=== PATIENT | male | born 1990 | race Caucasian/White ===

== ENCOUNTER 2025-01-05 14:21 | Emergency (ER) | payer MEDICAID ==
[~2025-01-05] VITALS: Ht 180.3 cm; Wt 86.9 kg
[2025-01-05 14:28] VITALS: TEMP 98
[2025-01-05] MEDS: LIDOcaine 1% 30ml preserv. free vial IJ ONE (16:01)
[2025-01-05] MEDS ORDERED: CLIN-97 PO (16:09)
[2025-01-05] MEDS ORDERED: IBUP-862 PO (16:09)
[2025-01-05 16:54] VITALS: BP 139/85; PULSE 80; RESP 16; O2SAT 99
== END 2025-01-05 16:55 | disposition home or self-care (01) ==
LOC: ER 14:22
DX: L03.211 Cellulitis of face (principal); L03.012 Cellulitis of left finger; Z79.1 Long term (current) use of non-steroidal anti-inflammatories (NSAID)
CPT/HCPCS: 26010; 99283; A6407

== ENCOUNTER 2025-01-07 08:18 | Emergency (ER) | payer MEDICAID ==
[~2025-01-07] VITALS: Ht 180.3 cm; Wt 86.9 kg
[~2025-01-07 08:18] MED LIST: CLIN-97 PO; IBUP-862 PO
[2025-01-07 08:26] VITALS: BP 126/89; PULSE 82; TEMP 97.8; O2SAT 100
[2025-01-07] MEDS: LIDOcaine 1% 30ml preserv. free vial IJ ONE (09:20)
[2025-01-07] MEDS: TETanus/Pertussis (Acell)/Diphther VAC/PF (Tdap-Adult) 0.5ml syringe IMVAC ONE (10:31)
[2025-01-07 10:49] VITALS: RESP 16
[2025-01-07] MEDS: HYDROcodone/acetaminophen 10/325mg tab PO ONE (10:49)
== END 2025-01-07 11:21 | disposition home or self-care (01) ==
LOC: ER 08:19
DX: L02.512 Cutaneous abscess of left hand (principal); F17.200 Nicotine dependence, unspecified, uncomplicated; Z79.1 Long term (current) use of non-steroidal anti-inflammatories (NSAID); Z79.899 Other long term (current) drug therapy; Z59.00 Homelessness unspecified
CPT/HCPCS: 10160; 87070; 87077; 87186; 90471; 90715; 99284; A6407; A6258

== ENCOUNTER 2025-03-01 16:52 | Emergency (ER) | payer MEDICAID | END 2025-03-01 17:35 | disposition left against medical advice (07) | LOC: ER 16:53 | DX: Z00.8 Encounter for other general examination (principal); Z53.21 Procedure and treatment not carried out due to patient leaving prior to being seen by health care provider ==

== ENCOUNTER 2025-03-20 15:48 | Emergency (ER) | payer MEDICAID ==
[~2025-03-20] VITALS: Ht 180.3 cm; Wt 84.1 kg
[2025-03-20 15:55] VITALS: BP 139/73; PULSE 100; RESP 16; O2SAT 98
[2025-03-20] MEDS: LIDOcaine 1% 30ml preserv. free vial SQ STA (16:52)
[2025-03-20 17:21] LABS: BASOPHILS # (AUTO) 0.1 X10'3 (0-0.2); BASOPHILS % (AUTO) 0.6 % (0-1); EOSINOPHILS # (AUTO) 0.3 X10'3 (0-0.9); EOSINOPHILS % (AUTO) 2.8 % (0-6); HEMATOCRIT 37.1 % (42.0-52.0); HEMOGLOBIN 12.7 g/dl (14.0-17.9); LYMPHOCYTES # (AUTO) 1.3 X10'3 (1.1-4.8); LYMPHOCYTES % (AUTO) 12.5 % (21-51); MEAN CORPUSCULAR HEMOGLOBIN 31.7 PG (27.0-31.0); MEAN CORPUSCULAR HGB CONC 34.3 g/dL (33.0-36.5); MEAN CORPUSCULAR VOLUME 92.4 FL (78-98); MEAN PLATELET VOLUME 6.4 FL (7.4-10.4); MONOCYTES # (AUTO) 0.6 X10'3 (0-0.9); NEUTROPHILS # (AUTO) 8.3 X10'3 (1.8-7.7); NEUTROPHILS % (AUTO) 78.1 % (42-75); PLATELET COUNT 237 X10'3 (140-440); RED BLOOD COUNT 4.02 X10'6 (4.70-6.10); WHITE BLOOD COUNT 10.7 X10'3 (4.5-11.0)
--- NOTE | 2025-03-20 17:34 | RADIOLOGY REPORT ---
CLINICAL INDICATION: infection, r/o FOB in AC LEFT TECHNIQUE: 2 radiographic views of the left elbow were obtained. Comparison: None FINDINGS/IMPRESSION: There is no evidence of acute fracture or dislocation. The visualized joint space is well maintained. The alignment is anatomical. There is no radiopaque foreign body.
[2025-03-20 17:38] LABS: ALANINE AMINOTRANSFERASE 21 U/L (12-78); ALBUMIN 2.9 G/DL (3.4-5.0); ALBUMIN/GLOBULIN RATIO 0.9 (1.1-1.5); ALKALINE PHOSPHATASE 118 IU/L (46-116); ANION GAP 10 (8-16); ASPARTATE AMINO TRANSFERASE 27 U/L (10-37); BILIRUBIN,TOTAL 0.4 MG/DL (0.1-1.0); BLOOD UREA NITROGEN 7 MG/DL (7-18); BUN/CREATININE RATIO 11.3 (10.0-20.0); CALCIUM 8.1 MG/DL (8.5-10.1); CHLORIDE 103 MMOL/L (99-107); CREATININE 0.62 MG/DL (0.60-1.10); GLUCOSE 117 MG/DL (70-104); POTASSIUM 3.6 MMOL/L (3.5-5.1); SODIUM 141 MMOL/L (135-145); TOTAL CARBON DIOXIDE 28.3 MMOL/L (24-32); TOTAL PROTEIN 6.3 G/DL (6.4-8.2); eCRCL 182 ML/MIN; eGFR > 90 ML/MIN
[2025-03-20] MEDS: VANCOMYCIN 1.75GM/WATER FOR INJ (PEG) 350 ML IVPB IV ONE (17:41)
[2025-03-20] MEDS ORDERED: IBUP-1984 PO (18:29)
[2025-03-20] MEDS ORDERED: DOXY100C43 PO (18:29)
--- NOTE | 2025-03-20 18:34 | Physician Documentation ---
History of Present Illness General Chief Complaint: Abscess Stated Complaint: ABCESS ARM PAIN Time Seen by MD: 16:30 History of Present Illness Initial Comments 34-year-old male presents to emergency department for evaluation and management of the left forearm abscess with cellulitis. Reports recently do some IV methamphetamine the left antecubital fossa 45 days ago. He was going to obvious fluctuance with purulent discharge surrounding erythema and swelling. He does have reduced range of motion of the left upper extremity, pulses present radially, grossly neurologically intact radial median ulnar. Medication Reconciliation Allergies: Coded Allergies: No Known Allergies (Unverified , 01/05/25) Scheduled Clindamycin HCL* (Clindamycin HCL*), 1 CAP PO Q6H Doxycycline Monohydrate (Doxycycline Monohydrate), 100 MG PO BID Ibuprofen (Ibu), 1 TAB PO Q6H Ibuprofen* (Motrin*), 800 MG PO Q8H Past Medical History Past Medical History: No Pertinent History Past Surgical History: noncontributory Alcohol Use: Heavy Lives In: Homeless Review of Systems All Other Systems at this time: Reviewed and Negative Constitutional: Denies: fever, chills Musc: Reports: joint pain, joint swelling Integumentary Abscess Psychiatric blunted affect Physical Exam Physical Exam Vital Signs: RN Vital Signs have been reviewed: Yes, Temperature: 98.6, Source: Oral, Heart Rate: 100, Respiratory Rate: 16, BP: 139/73, Pulse Oximetry: 98, Weight: 84.100 Oxygen Flow Rate: 0 General Appearance: alert, WD/WN, moderate distress Head: normal inspection Face: normal inspection Pupils/EOM/Fundus: PERRLA Respiratory: no respiratory distress Chest: no accessory muscle use Cardiovascular: regular rate, rhythm Neurologic: oriented x4 Motor / Sensory: no motor deficit, no sensory deficit, other (Swelling with erythema am fluctuant 2 x 4 abscess left antecubital fossa. Excellent radial, ulnar and median nerve, he as you did not excellent cap refill) Psychiatric: other (Once it affect) Skin: erythema, other (Abscess left antecubital fossa) Lymphatic: No: axilla node tender (L) Procedures I & D Procedure : Anesthesia: Lidocaine Volume Anesthetic (mls): 1 Blade Size: 11 Prep/Supplies: betadine prep Incision: pus drained, blood drained Tolerated Procedure Well?: yes, no complications Procedure Note Patient given verbal consent for incision and drainage the left antecubital fossa abscess. I anesthetized with 1 cc of 1% lidocaine. After achieving adequate anesthesia the abscess was incised with a 11. Blade. Copious amounts of purulent discharge and serous sanguinous fluid expressed. The wound was then packed with a 6 in of half-inch gauze. 4x4 still gauze dressing applied. Progress Results/Orders Results/Orders Orders - PARKER FERRARO PAC Vancomycin/H2o 1.75g/350ml Pb (Vancomyci (03/20/25 17:10) Elbow,Limited (Ap/Lat) (03/20/25 17:12) Completed Orders - PARKER FERRARO PAC Lidocaine 1% 30ml Vial (Xylocaine 1% Via (03/20/25 16:52) Cbc/Diff (03/20/25 16:52) CMP (03/20/25 16:52) LA (03/20/25 16:52) Elbow,Limited (Ap/Lat) (03/20/25 17:12) Medications Received in ER Medications (Trade) Dose Ordered Sig/Marquise Route PRN Reason Start Time Stop Time Status Last Admin Dose Admin Vancomycin HCl 350 ml @ 117 mls/hr ONCE ONCE IV 03/20/25 17:10 03/20/25 20:09 03/20/25 17:41 117 MLS/HR Vital Signs 03/20/25 15:55 Temp 98.6 Pulse 100 Resp 16 B/P (MAP) 139/73 Pulse Ox 98 O2 Flow Rate 0 Laboratory Tests Test 03/20/25 17:03 White Blood Count 10.7 Red Blood Count 4.02 L Hemoglobin 12.7 L Hematocrit 37.1 L Mean Corpuscular Volume 92.4 Mean Corpuscular Hemoglobin 31.7 H Mean Corpuscular Hemoglobin Concent 34.3 Red Cell Distribution Width 13.0 Platelet Count 237 Mean Platelet Volume 6.4 L Neutrophils (%) (Auto) 78.1 H Lymphocytes (%) (Auto) 12.5 L Monocytes (%) (Auto) 6.0 Eosinophils (%) (Auto) 2.8 Basophils (%) (Auto) 0.6 Neutrophils # (Auto) 8.3 H Lymphocytes # (Auto) 1.3 Monocytes # (Auto) 0.6 Eosinophils # (Auto) 0.3 Basophils # (Auto) 0.1 CBC Comment Sodium Level 141 Potassium Level 3.6 Chloride Level 103 Carbon Dioxide Level 28.3 Anion Gap 10 Blood Urea Nitrogen 7 Creatinine 0.62 Estimated GFR/1.73 m2 > 90 BUN/Creatinine Ratio 11.3 Glucose Level 117 H Lactic Acid Level 1.9 Calcium Level 8.1 L Total Bilirubin 0.4 Aspartate Amino Transf (AST/SGOT) 27 Alanine Aminotransferase (ALT/SGPT) 21 Alkaline Phosphatase 118 H Total Protein 6.3 L Albumin 2.9 L Globulin 3.4 Albumin/Globulin Ratio 0.9 L Chemistry Comments Medical Decision Making Differential Diagnosis Bonilla is a 34-year-old male he used IV methamphetamine in the left antecubital fossa and subsequently developed with the abscess with cellulitis that has been present for 4-5 days. Reports that he has scheduled admin to rehab tomorrow. In the emergency department tonight he received IV vancomycin along with a incision and drainage procedure. He was reluctant in fact adamant not to stay in the hospital for further antibiotic intravenous administration yet wishes to begin outpatient. Patient will be discharged in the emergency department after laboratory review an x-ray of you. Patient be placed on doxycycline for 10 days with strict instructions to return to the emergency department the next 24-48 hours. He understands the risks, alternatives and benefits of hospital admission versus outpatient follow up. Patient's safely discharged from the emergency department. Without concerns of compartment syndrome post incision and drainage evaluation shows excellent cap refill grossly neurologically intact radial median ulnar nerve. Departure Disposition: 01 HOME / SELF CARE / HOMELESS Impression: Primary Impression: Abscess of antecubital fossa Condition: Improved Discharge Instructions: Abscess, Care After, Incision and Drainage, Cellulitis, Adult, [id number] Additional Instructions: Today in the emergency department you had incision and drainage of your left arm abscess. He received IV antibiotics and laboratory evaluation. You have elected not to stay in the hospital for further antibiotic administration you have wished to trial outpatient oral antibiotics with close follow up. Please return to the emergency department in next 24-48 hours for reassessment. Return sooner if worse. Thank you for visiting [facility]. Referrals: NO PRIMARY CARE PROVIDER (PCP) Prescriptions Ibuprofen* (Motrin*) 400 Mg Tablet 800 MG PO Q8H for 10 Days, #30 TAB Prov: PARKER FERRARO PAC 03/20/25 Doxycycline Monohydrate (Doxycycline Monohydrate) 100 Mg Capsule 100 MG PO BID, #20 CAP may sub doxycycline hyclate or azithromycin z-pack as prescribed Prov: PARKER FERRARO PAC 03/20/25 Education Educated: Patient Educated regarding: diagnosis, treatment, prognosis Signature Scribe Signature: . Attestation: . PARKER FERRARO PAC March 20, 2025 18:34
[2025-03-20 19:33] VITALS: TEMP 98.6
[2025-03-20] MEDS ORDERED: VANCOMYCIN 1,500MG inj. 1,500 MG in normal saline 500ml IV soln 300 ML IV SCH (20:00)
== END 2025-03-20 19:35 | disposition home or self-care (01) ==
LOC: ER 15:49
DX: L02.414 Cutaneous abscess of left upper limb (principal); F10.10 Alcohol abuse, uncomplicated; Z59.00 Homelessness unspecified; Y90.9 Presence of alcohol in blood, level not specified
CPT/HCPCS: 10060; 36415; 73070; 80053; 83605; 85025; 96365; 96366; 99284; A6266; J3372; A6449

== ENCOUNTER 2025-03-25 14:01 | Emergency (ER) | payer MEDICAID ==
[~2025-03-25] VITALS: Ht 167.6 cm; Wt 81.5 kg
[~2025-03-25 14:01] MED LIST changes: +DOXY100C43 PO; +IBUP-1984 PO
[2025-03-25] MEDS ORDERED: SULF1TAB49 PO (15:25)
--- NOTE | 2025-03-25 15:25 | Physician Documentation ---
History of Present Illness ~ Chief Complaint: Wound Re-Check Stated Complaint: ARM INFECTION Time Seen by MD: 14:07 OK to notify your PCP?: Yes Primary Medical Doctor: No PMD Source: patient Mode of Arrival: POV Exam Limitations: no limitations HPI 34-year-old male with chief complaint abscess at his left antecubital fossa that was treated here with I and D March 19. Patient states that he picked up the do xycycline but then lost the prescription almost immediately and thus he never took any of the antibiotic. States the pain seems to have improved significantly he is able to move his elbow and arm normally. Denies any pain in his axilla, fever, chills, nausea, chest pain or shortness of breath. Tetanus within 5 years?: Yes (Dec 2024) Medication Reconciliation Allergies: Coded Allergies: No Known Allergies (Unverified , 01/05/25) Scheduled Clindamycin HCL* (Clindamycin HCL*), 1 CAP PO Q6H Doxycycline Monohydrate (Doxycycline Monohydrate), 100 MG PO BID Ibuprofen (Ibu), 1 TAB PO Q6H Ibuprofen* (Motrin*), 800 MG PO Q8H Sulfamethoxazole/Trimethoprim (Bactrim Ds Tablet), 1 TAB PO Q12H Past Medical History Past Medical History: No Pertinent History Past Surgical History: noncontributory Alcohol Use: Heavy Lives In: Homeless Review of Systems All Other Systems at this time: Reviewed and Negative Physical Exam Vital Signs: Temperature: 98.0, Source: Oral, Heart Rate: 88, Respiratory Rate: 16, BP: 132/75, Pulse Oximetry: 100, Weight: 81.500 Oxygen Flow Rate: 0 Physical Exam General Appearance: Alert, WD/WN. NAD. HEENT: NCAT, PERRL, EOMI. Neck: Supple, trachea midline. Cardiovascular: RRR. No m/r/g. Lungs: CTAB. Breathing unlabored Extremities: Normal inspection. No edema. Skin: LEFT UE-erythematous area left antecubital fossa measuring approximately 3 cm in diameter in the center the area of erythema there is an open area of skin where there is some purulent drainage, no proximal erythematous streak up the ar m, active range motion at elbow joint is full. No axillary lymphadenopathy. Neurological: Alert and oriented x4, normal gait. Psychiatric: Affect congruent with mood. Progress Results/Orders Results/Orders Vital Signs 03/25/25 03/25/25 14:02 15:33 Temp 98.0 98.0 Pulse 88 70 Resp 16 16 B/P (MAP) 132/75 126/80 Pulse Ox 100 99 O2 Flow Rate 0 Medical Decision Making Differential Dx:Considerations: Include: Abscess, Cellulitis, Dressing change, Healing wound, Other Departure Time of Disposition: 18:45 Disposition: 01 HOME / SELF CARE / HOMELESS Impression: Primary Impression: Abscess of antecubital fossa Additional Instructions: appears to be improved from when you where here previously per the chart notes, but has not resolved, likely because you never got the antibiotics or your got them and lost them. I sent new rx to the pharmacy. Referrals: NO PRIMARY CARE PROVIDER (PCP) Prescriptions Sulfamethoxazole/Trimethoprim (Bactrim Ds Tablet) 800 Mg-160 Mg Tablet 1 TAB PO Q12H for 10 Days, #20 TAB Prov: OSBALDO PONCE 03/25/25 Education Educated: Patient Educated regarding: diagnosis, treatment, need for follow up Signature Scribe Signature: X Attestation: OSBALDO GALVAN March 25, 2025 15:25
[2025-03-25 15:33] VITALS: BP 126/80; PULSE 70; RESP 16; TEMP 98; O2SAT 99
== END 2025-03-25 15:28 | disposition home or self-care (01) ==
LOC: ER 14:01
DX: L02.414 Cutaneous abscess of left upper limb (principal); F10.90 Alcohol use, unspecified, uncomplicated; Z79.899 Other long term (current) drug therapy; Z59.00 Homelessness unspecified; Y90.9 Presence of alcohol in blood, level not specified
CPT/HCPCS: 99283

== ENCOUNTER 2025-03-30 11:44 | Emergency (ER) | payer MEDICAID ==
[~2025-03-30] VITALS: Ht 180.3 cm; Wt 84.1 kg
[~2025-03-30 11:44] MED LIST changes: +SULF1TAB49 PO
[2025-03-30 12:02] VITALS: BP 149/93; PULSE 78; RESP 18; TEMP 97.9; O2SAT 98
--- NOTE | 2025-03-30 13:19 | Physician Documentation ---
History of Present Illness ~ Chief Complaint: Testicular Pain Stated Complaint: MULTIPLE MED COMPLAINTS Time Seen by MD: 12:13 Primary Medical Doctor: No PMD HPI 34 year old male reports several months of bilateral testicular pain and swelling. Denies dysuria, discharge, unprotected sex, fevers, N/V/D. Medication Reconciliation Allergies: Coded Allergies: No Known Allergies (Unverified , 01/05/25) Scheduled Clindamycin HCL* (Clindamycin HCL*), 1 CAP PO Q6H Doxycycline Monohydrate (Doxycycline Monohydrate), 100 MG PO BID Ibuprofen (Ibu), 1 TAB PO Q6H Ibuprofen* (Motrin*), 800 MG PO Q8H Sulfamethoxazole/Trimethoprim (Bactrim Ds Tablet), 1 TAB PO Q12H Past Medical History Past Medical History: No Pertinent History Past Surgical History: noncontributory Alcohol Use: Heavy Lives In: Homeless Review of Systems All Other Systems at this time: Reviewed and Negative Physical Exam Vital Signs: RN Vital Signs have been reviewed: Yes, Temperature: 97.9, Source: Temporal, Heart Rate: 78, Respiratory Rate: 18, BP: 149/93, Pulse Oximetry: 98, Weight: 84.090 Physical Exam HEENT: PERRL, moist oral mucosa, EOMI Pulmonary: No respiratory distress : normal meatus, no discharge; R testicle mildly swollen and tender, L testicle unremarkable. +cremasteric reflex bilaterally, no hernias appreciated. MSK: no deformity Skin: w/d/i, no rash Neuro: alert, nonfocal Psych: normal affect Progress Results/Orders Results/Orders Orders - GRADY HUANG MD Us Testic/W/Duplex (03/30/25 12:40) Urinalysis, Cult If Indicated (03/30/25 12:53) Vital Signs 03/30/25 12:02 Temp 97.9 Pulse 78 Resp 18 B/P (MAP) 149/93 Pulse Ox 98 Medical Decision Making Findings 34 year old male with testicular swelling. Vitals and exam largely unremarkable. Patient eloped prior to completion of workup which would have included an ultr asound of the testicles. Departure Disposition: 07 LEFT AWOL/ELOPED Impression: Primary Impression: Pain in testicle Condition: Stable Referrals: NO PRIMARY CARE PROVIDER (PCP) Signature Scribe Signature: . Attestation: . GRADY HUANG MD March 30, 2025 13:19
== END 2025-03-30 13:18 | disposition left against medical advice (07) ==
LOC: ER 11:45
DX: N50.811 Right testicular pain (principal); N50.812 Left testicular pain
CPT/HCPCS: 99281

== ENCOUNTER 2025-04-02 08:36 | Emergency (ER) | payer MEDICAID ==
[~2025-04-02] VITALS: Ht 180.3 cm; Wt 82.3 kg
[~2025-04-02 08:36] MED LIST changes: -IBUP-1984 PO
--- NOTE | 2025-04-02 09:54 | Physician Documentation ---
History of Present Illness ~ Chief Complaint: Suture Removal Stated Complaint: SUTURE REMOVAL Time Seen by MD: 09:03 Primary Medical Doctor: No PCP Source: patient, RN/ HPI The patient is Seen today with complaints of needing sutures removed from his chin. Patient states they were placed about a month ago but has not had the mount yet. Tetanus Within 5 Years: Yes (Dec 2024) Medication Reconciliation Allergies: Coded Allergies: No Known Allergies (Unverified , 01/05/25) Scheduled Clindamycin HCL* (Clindamycin HCL*), 1 CAP PO Q6H Doxycycline Monohydrate (Doxycycline Monohydrate), 100 MG PO BID Ibuprofen (Ibu), 1 TAB PO Q6H Sulfamethoxazole/Trimethoprim (Bactrim Ds Tablet), 1 TAB PO Q12H Discontinued Medications Ibuprofen* (Motrin*), 800 MG PO Q8H Discontinued Reason: Auto Discontinued Past Medical History Past Medical History: No Pertinent History Past Surgical History: noncontributory Smoking Status: Current every day smoker Alcohol Use: Heavy Lives In: Homeless Review of Systems Constitutional: Denies: chills, fever, weakness Eyes: Denies: pain, blurred vision ENT: Denies: ear pain, nose pain, throat pain, mouth pain Respiratory: Denies: cough, shortness of breath Cardiovascular: Denies: chest pain, palpitations Gastrointestinal: Denies: abdominal pain, nausea, vomiting Genitourinary: Denies: burning, dysuria Male Genitalia: Denies: penile discharge, testicular pain Neurological: Denies: headache, dizziness Musculoskeletal: Denies: pain, swelling Integumentary: Denies: rash, lesions Allergic/Immunologic: Denies: hives, itching Hematologic/Lymphatic: Denies: no symptoms reported Psychiatric: Denies: depression, anxiety Physical Exam Vital Signs: Temperature: 98.5, Source: Oral, Heart Rate: 98, Respiratory Rate: 18, BP: 175/86, Pulse Oximetry: 100, Weight: 82.300 Progress Results/Orders Results/Orders Vital Signs 04/02/25 08:54 Temp 98.5 Pulse 98 Resp 18 B/P (MAP) 175/86 Pulse Ox 100 Medical Decision Making Findings The patient is Seen today with complaints of needing sutures removed from his chin. Patient states they were placed about a month ago but has not had the mount yet. Patient did have three simple sutures removed today in the ED. Patient tolerated well. Patient will return to ED with any worsening, concerning or changing symptoms. Departure Disposition: 01 HOME / SELF CARE / HOMELESS Impression: Primary Impression: Visit for suture removal Condition: Improved Discharge Instructions: Suture Removal, Care After Additional Instructions: Patient did have three simple sutures removed today in the ED. Patient tolerated well. Patient will return to ED with any worsening, concerning or changing symptoms. Referrals: NO PRIMARY CARE PROVIDER (PCP) Signature Scribe Signature: No scribe Attestation: no scribe THIAGO RINCON PAC April 02, 2025 09:54
[2025-04-02 10:07] VITALS: BP 122/68; PULSE 74; RESP 16; TEMP 98.4; O2SAT 99
== END 2025-04-02 10:08 | disposition home or self-care (01) ==
LOC: ER 08:36
DX: S01.81XD Laceration without foreign body of other part of head, subsequent encounter (principal); F17.200 Nicotine dependence, unspecified, uncomplicated; F10.90 Alcohol use, unspecified, uncomplicated; Z59.00 Homelessness unspecified; Z79.899 Other long term (current) drug therapy; Y90.9 Presence of alcohol in blood, level not specified; X58.XXXD Exposure to other specified factors, subsequent encounter
CPT/HCPCS: 99281